=== PATIENT | female | born 1955 | race Caucasian/White ===

== ENCOUNTER 2017-12-27 11:56 | Inpatient (IN) | payer BC ==
[2017-12-27 12:29] LABS: Glucose,Whole Blood 356 mg/dL (75-99)
[2017-12-27] MEDS ORDERED: SODIUM CHLORIDE 0.9% 500 ML IV STA (12:31)
--- NOTE | 2017-12-27 12:34 | ED ---
General Adult HPI - General Chief complaint: Neuro Symptoms/Deficit Stated complaint: Poss Stroke Time Seen by Provider: 12/27/17 12:00 Source: patient, family, RN notes reviewed Mode of arrival: ambulatory Limitations: no limitations - History of Present Illness Initial comments: This is a 62-year-old female presents emergency Department stating that she started having slurred speech last night which her noticed. Patient states she went to work and her coworkers noticed insisted she come to the emergency department. Patient denies headache patient denies any numbness or weakness. Patient states her coworkers thought her face was drooping but she didn't notice it in her doesn't notice it. Patient denies any chest pain palpitations difficulty breathing or shortness of breath. Patient denies any fever chills or cough per patient denies abdominal pain patient denies nausea vomiting diarrhea. Patient denies any lightheadedness dizziness or near syncopal episode. Patient denies any new medications. Patient states she has posterior taking thyroid medication but she does not take it. - Related Data Home Medications Medication Instructions Recorded Confirmed Aspirin 650 mg PO DAILY PRN 12/27/17 12/27/17 Allergies Allergy/AdvReac Type Severity Reaction Status Date / Time codeine AdvReac headache Verified 12/27/17 12:35 morphine AdvReac family hx Verified 12/27/17 12:35 of severe reactions per pt Review of Systems ROS Statement: Those systems with pertinent positive or pertinent negative responses have been documented in the HPI. ROS Other: All systems not noted in ROS Statement are negative. Past Medical History Past Medical History: No Reported History History of Any Multi-Drug Resistant Organisms: None Reported Past Surgical History: No Surgical Hx Reported Past Psychological History: No Psychological Hx Reported Smoking Status: Never smoker Past Alcohol Use History: None Reported Past Drug Use History: None Reported General Exam - General Exam Comments Initial Comments: GENERAL: Patient is well-developed and well-nourished. Patient is nontoxic and well- hydrated and is in no acute distress. ENT: Neck is soft and supple. No significant lymphadenopathy is noted. Oropharynx is clear. Moist mucous membranes. Neck has full range of motion without eliciting any pain EYES: The sclera were anicteric and conjunctiva were pink and moist. Extraocular movements were intact and pupils were equal round and reactive to light. Eyelids were unremarkable. PULMONARY: Unlabored respirations. Good breath sounds bilaterally. No audible rales rhonchi or wheezing was noted. CARDIOVASCULAR: There is a regular rate and rhythm without any murmurs gallops or rubs. ABDOMEN: Soft and nontender with normal bowel sounds. No palpable organomegaly was noted. There is no palpable pulsatile mass. SKIN: Skin is clear with no lesions or rashes and otherwise unremarkable. NEUROLOGIC: Patient is alert and oriented x3. Cranial nerves II through XII are grossly intact. Motor and sensory are also intact. Patient's speech is slightly slurred. Symmetrical smile. MUSCULOSKELETAL: Normal extremities with adequate strength and full range of motion. No lower extremity swelling or edema. No calf tenderness. LYMPHATICS: No significant lymphadenopathy is noted PSYCHIATRIC: Normal psychiatric evaluation. Normal interpersonal interactions appears functionally intact in deals appropriately with others. No signs of depression. No signs of anxiety. Limitations: no limitations Course Vital Signs 12/27/17 12/27/17 12/27/17 12:00 14:21 16:00 Temperature 98.3 F Pulse Rate 74 80 Respiratory 20 16 18 Rate Blood Pressure 190/89 166/51 O2 Sat by Pulse 97 95 Oximetry 12/27/17 16:37 Temperature Pulse Rate 80 Respiratory 18 Rate Blood Pressure O2 Sat by Pulse 98 Oximetry Medical Decision Making - Medical Decision Making EKG shows normal sinus rhythm at 69 bpm CO interval is 140 QRS is 80 QT interval 410 QTC is 439. Patient's EKG shows no ST segment elevation or depression or T wave abnormalities are noted. Computed tomography scan shows no acute abnormalities on the brain. Chest x-ray shows no acute abnormality. Patient's sugar is elevated she is no history of diabetes. Patient's thyroid is low but she is aware of this but she's not taken any of her normal medications. I spoke with Dr. Allen I admitted the patient I consult the neurology I put the patient on a insulin sliding scale. - Lab Data Result diagrams: 12/27/17 12:20 12/27/17 12:20 Lab Results 12/27/17 12/27/17 12/27/17 Range/Units 12:20 12:20 12:20 WBC 6.4 (3.8-10.6) k/uL RBC 5.15 (3.80-5.40) m/uL Hgb 14.1 (11.4-16.0) gm/dL Hct 43.7 (34.0-46.0) % MCV 84.9 (80.0-100.0) fL MCH 27.3 (25.0-35.0) pg MCHC 32.2 (31.0-37.0) g/dL RDW 13.2 (11.5-15.5) % Plt Count 280 (150-450) k/uL Neutrophils % 52 % Lymphocytes % 35 % Monocytes % 8 % Eosinophils % 3 % Basophils % 1 % Neutrophils # 3.3 (1.3-7.7) k/uL Lymphocytes # 2.3 (1.0-4.8) k/uL Monocytes # 0.5 (0-1.0) k/uL Eosinophils # 0.2 (0-0.7) k/uL Basophils # 0.1 (0-0.2) k/uL PT (9.0-12.0) sec INR (<1.2) APTT (22.0-30.0) sec Sodium 138 (137-145) mmol/L Potassium 4.5 (3.5-5.1) mmol/L Chloride 98 (98-107) mmol/L Carbon Dioxide 25 (22-30) mmol/L Anion Gap 15 mmol/L BUN 18 H (7-17) mg/dL Creatinine 0.70 (0.52-1.04) mg/dL Est GFR (CKD-EPI)AfAm >90 (>60 ml/min/1.73 sqM) Est GFR (CKD-EPI)NonAf >90 (>60 ml/min/1.73 sqM) Glucose 349 H (74-99) mg/dL POC Glucose (mg/dL) (75-99) mg/dL POC Glu Photo Lab Manager ID Calcium 9.6 (8.4-10.2) mg/dL Total Bilirubin 0.6 (0.2-1.3) mg/dL AST 33 (14-36) U/L ALT 35 (9-52) U/L Alkaline Phosphatase 73 (38-126) U/L Total Creatine Kinase 289 H (30-135) U/L CK-MB (CK-2) 3.1 H* (0.0-2.4) ng/mL CK-MB (CK-2) Rel Index 1.1 Troponin I <0.012 (0.000-0.034) ng/mL Total Protein 7.5 (6.3-8.2) g/dL Albumin 4.6 (3.5-5.0) g/dL TSH 69.400 H (0.465-4.680) mIU/L Free T4 0.19 L (0.78-2.19) ng/dL 12/27/17 12/27/17 Range/Units 12:20 12:27 WBC (3.8-10.6) k/uL RBC (3.80-5.40) m/uL Hgb (11.4-16.0) gm/dL Hct (34.0-46.0) % MCV (80.0-100.0) fL MCH (25.0-35.0) pg MCHC (31.0-37.0) g/dL RDW (11.5-15.5) % Plt Count (150-450) k/uL Neutrophils % % Lymphocytes % % Monocytes % % Eosinophils % % Basophils % % Neutrophils # (1.3-7.7) k/uL Lymphocytes # (1.0-4.8) k/uL Monocytes # (0-1.0) k/uL Eosinophils # (0-0.7) k/uL Basophils # (0-0.2) k/uL PT 10.0 (9.0-12.0) sec INR 1.0 (<1.2) APTT 24.7 (22.0-30.0) sec Sodium (137-145) mmol/L Potassium (3.5-5.1) mmol/L Chloride (98-107) mmol/L Carbon Dioxide (22-30) mmol/L Anion Gap mmol/L BUN (7-17) mg/dL Creatinine (0.52-1.04) mg/dL Est GFR (CKD-EPI)AfAm (>60 ml/min/1.73 sqM) Est GFR (CKD-EPI)NonAf (>60 ml/min/1.73 sqM) Glucose (74-99) mg/dL POC Glucose (mg/dL) 356 H (75-99) mg/dL POC Glu Photo Lab Manager KENDALL Eric Campo Calcium (8.4-10.2) mg/dL Total Bilirubin (0.2-1.3) mg/dL AST (14-36) U/L ALT (9-52) U/L Alkaline Phosphatase (38-126) U/L Total Creatine Kinase (30-135) U/L CK-MB (CK-2) (0.0-2.4) ng/mL CK-MB (CK-2) Rel Index Troponin I (0.000-0.034) ng/mL Total Protein (6.3-8.2) g/dL Albumin (3.5-5.0) g/dL TSH (0.465-4.680) mIU/L Free T4 (0.78-2.19) ng/dL Disposition Clinical Impression: New onset type 2 diabetes mellitus, Hypothyroid, TIA (transient ischemic attack ) Disposition: ADMITTED IP TO THIS [facility] Time of Disposition: 16:25
--- NOTE | 2017-12-27 13:44 | CT ---
EXAMINATION TYPE: CT brain wo con DATE OF EXAM: 12/27/2017 COMPARISON: NONE HISTORY: Slurred speech CT DLP: 1017.[address] of the brain was performed. The ventricles, basal cisterns and sulci overlying the cerebral convexities demonstrate mild enlargem ent. There is no evidence for intracranial hemorrhage or sulcal effacement. Smaller remote insult right centrum semiovale bilaterally. There is decreased attenuation about the p eriventricular white matter and deep white matter of both cerebral hemispheres, compatible with chron ic small vessel ischemia. Differential diagnosis does include demyelination. No mass effects are seen.No midline shift. Osseous calvarium is intact. If symptoms persist consider MRI. IMPRESSION: 1. Age related atrophic and chronic small vessel ischemic change without acute intracranial process s een at this time.
--- NOTE | 2017-12-27 13:45 | XR ---
EXAMINATION TYPE: XR chest 2V DATE OF EXAM: 12/27/2017 COMPARISON: NONE HISTORY: Shortness of breath TECHNIQUE: Frontal and lateral views of the chest are obtained. FINDINGS: Scattered senescent parenchymal changes noted. No evidence for infiltrate. No evidence for atelectasis. Heart size is stable. Mediastinal structures are stable and grossly unremarkable. No evidence for hilar prominence. Degenerative changes dorsal spine. IMPRESSION: 1. No evidence for acute pulmonary disease.
[2017-12-27 15:43] LABS: ALT 35 U/L (9-52); AST 33 U/L (14-36); Albumin 4.6 g/dL (3.5-5.0); Alkaline Phosphatase 73 U/L (38-126); Anion Gap 15 mmol/L; Blood Urea Nitrogen 18 mg/dL (7-17); Calcium 9.6 mg/dL (8.4-10.2); Carbon Dioxide 25 mmol/L (22-30); Chloride 98 mmol/L (98-107); Glucose 349 mg/dL (74-99); Potassium 4.5 mmol/L (3.5-5.1); Sodium 138 mmol/L (137-145); Total Bilirubin 0.6 mg/dL (0.2-1.3); Total Protein 7.5 g/dL (6.3-8.2)
[2017-12-27 15:48] LABS: Basophils # (A) 0.1 k/uL (0-0.2); Basophils % (A) 1 %; Eosinophils # (A) 0.2 k/uL (0-0.7); Eosinophils % (A) 3 %; HCT 43.7 % (34.0-46.0); HGB 14.1 gm/dL (11.4-16.0); Lymphocytes # (A) 2.3 k/uL (1.0-4.8); Lymphocytes % (A) 35 %; MCH 27.3 pg (25.0-35.0); MCHC 32.2 g/dL (31.0-37.0); MCV 84.9 fL (80.0-100.0); Monocytes # (A) 0.5 k/uL (0-1.0); Monocytes % (A) 8 %; Neutrophils # (A) 3.3 k/uL (1.3-7.7); Neutrophils % (A) 52 %; Platelet Count 280 k/uL (150-450); RBC 5.15 m/uL (3.80-5.40); RDW 13.2 % (11.5-15.5); WBC 6.4 k/uL (3.8-10.6)
[2017-12-27 15:52] LABS: Partial Thromboplastin Time 24.7 sec (22.0-30.0)
[2017-12-27 15:57] LABS: Creatine Kinase 289 U/L (30-135)
[2017-12-27 16:00] LABS: T4, Free (Free Thyroxine) 0.19 ng/dL (0.78-2.19)
[2017-12-27 16:10] LABS: Troponin I <0.012 ng/mL (0.000-0.034)
[2017-12-27 16:15] VITALS: RESP 18
[2017-12-27 16:28] LABS: Creatine Kinase MB 3.1 ng/mL (0.0-2.4)
[2017-12-27] MEDS: INSULIN ASPART 100 UNIT/ML 1 ML 10 ML VIAL SQ SCH ×2 (17:34→21:27)
[2017-12-27] MEDS ORDERED: hydrALAZINE HCL 20 MG/ML 1 ML VIAL IVP PRN (18:54)
--- NOTE | 2017-12-27 20:04 | P.CONS ---
History of Present Illness - Reason for Consult Consult date: 12/27/17 Slurred speech - Chief Complaint Slurred speech - History of Present Illness This 62-year-old pleasant female being evaluated by the neurology service for slurred speech. Last night her noticed that her speech was a little slurred. She went to work and coworkers also noticed this. She has no previous history of TIA or stroke. He denies headaches or lateralizing numbness or weakness. He denied any chest pains. He denied any dizziness. He does have a significant history of hypothyroidism but she does not take her medication. Her blood pressure was quite elevated in the emergency room. CT of the brain showed no acute intracranial abnormalities. It did show age- related atrophic and chronic small vessel ischemic changes. Her glucose was found to be quite elevated. She has been started on insulin. No known history of diabetes. At the time of eye exam she is resting comfortably in bed in no acute distress. Review of Systems All systems: negative Constitutional: Reports as per HPI Past Medical History Past Medical History: Memory Impairment, Thyroid Disorder Additional Past Medical History / Comment(s): at age 55 fell slpit back of head open-sutures. hx of thyroid but weaned herself off her meds a month ago d/t cost of them. stated she has short term memory problems. History of Any Multi-Drug Resistant Organisms: None Reported Past Surgical History: Tubal Ligation Additional Past Surgical History / Comment(s): colonoscopy Past Anesthesia/Blood Transfusion Reactions: No Reported Reaction Smoking Status: Former smoker - Past Family History Mother Family Medical History: Diabetes Mellitus Sister(s) Family Medical History: Diabetes Mellitus Additional Family Medical History / Comment(s): neuropathy Father Family Medical History: Cancer, Seizure Disorder Medications and Allergies Home Medications Medication Instructions Recorded Confirmed Type Aspirin 650 mg PO DAILY PRN 12/27/17 12/27/17 History Allergies Allergy/AdvReac Type Severity Reaction Status Date / Time codeine AdvReac headache Verified 12/27/17 12:35 morphine AdvReac family hx Verified 12/27/17 12:35 of severe reactions per pt Physical Exam Vitals: Vital Signs Temp Pulse Pulse Resp BP BP Pulse Ox 12/27/17 18:19 96.4 F L 68 18 183/93 99 12/27/17 17:40 98.7 F 78 18 156/70 98 03/23/18 16:37 80 18 98 12/27/17 16:00 18 12/27/17 14:21 80 16 166/51 95 12/27/17 12:00 98.3 F 74 20 190/89 97 Intake and Output 12/27/17 12/27/17 12/27/17 06:59 14:59 22:59 Other: Weight 68.039 kg - Constitutional General appearance: average body habitus, cooperative, no acute distress - EENT Eyes: no abnormal pupil, EOMI, PERRLA, no ptosis ENT: hearing grossly normal - Neck Neck: normal ROM, no rigidity - Respiratory Respiratory: negative: prolonged expiration, prolonged inspiration - Cardiovascular Rhythm: regular - Gastrointestinal General gastrointestinal: no distended, no tenderness - Neurologic The patient is alert awake and oriented 3. Speech is slightly slurred and language are normal. Note that she does have 2 missing bottom teeth. She said this is not new. And she does think she is slurring her words a little. There is no facial asymmetry. Strength is 5 out of 5 in bilateral upper and lower extremities. There is no sensory deficit. No tremors or seizures are seen. Cranial nerves II through XII are intact globally. Results CBC & Chem 7: 12/27/17 12:20 12/27/17 12:20 Labs: Abnormal Lab Results - Last 24 Hours (Table) 12/27/17 12/27/17 12/27/17 Range/Units 12:20 12:20 12:27 BUN 18 H (7-17) mg/dL Glucose 349 H (74-99) mg/dL POC Glucose (mg/dL) 356 H (75-99) mg/dL Total Creatine Kinase 289 H (30-135) U/L CK-MB (CK-2) 3.1 H* (0.0-2.4) ng/mL TSH 69.400 H (0.465-4.680) mIU/L Free T4 0.19 L (0.78-2.19) ng/dL Assessment and Plan (1) Accelerated hypertension Current Visit: Yes Status: Suspected Code(s): I10 - ESSENTIAL (PRIMARY) HYPERTENSION SNOMED Code(s): 56399003 (2) Hypothyroid Current Visit: Yes Status: Chronic Code(s): E03.9 - HYPOTHYROIDISM, UNSPECIFIED SNOMED Code(s): 93938253 (3) New onset type 2 diabetes mellitus Current Visit: Yes Status: Suspected Code(s): E11.9 - TYPE 2 DIABETES MELLITUS WITHOUT COMPLICATIONS SNOMED Code(s): 25240522 (4) Dysarthria Current Visit: Yes Status: Acute Code(s): R47.1 - DYSARTHRIA AND ANARTHRIA SNOMED Code(s): 9205775 Plan: This patient does have a persistent symptom of slurred speech. I will order an MRI of the brain to rule out an acute ischemic event. Carotid Doppler has been ordered as well as an EEG. Lipid panel has been ordered. I will start her on 325 mg of aspirin and Lipitor 20 mg. She has a new diagnosis of diabetes. Initiation of treatment has begun on that. Recommend monitoring her blood pressure and putting on appropriate medication. Consult has been placed for speech therapy. We will continue to follow and make recommendations based on the above studies. I have performed a history and physical on the above patient. I have reviewed the above note, and agree.
[2017-12-27] MEDS ORDERED: ATORVASTATIN 20 MG TAB PO SCH (21:00)
[2017-12-27 21:26] LABS: Glucose,Whole Blood 146 mg/dL (75-99)
--- NOTE | 2017-12-27 22:32 | US ---
EXAMINATION TYPE: US carotid duplex BILAT DATE OF EXAM: 12/27/2017 COMPARISON: NONE CLINICAL HISTORY: dysarthria. Slurred speech EXAM MEASUREMENTS: RIGHT: Peak Systolic Velocity (PSV) cm/sec ----- Right CCA: 57.2 ----- Right ICA: 73.4 ----- Right ECA: 77.5 ICA/CCA ratio: 1.3 RIGHT: End Diastole cm/sec ----- Right CCA: 15.4 ----- Right ICA: 22.6 ----- Right ECA: 6.5 LEFT: Peak Systolic Velocity (PSV) cm/sec ----- Left CCA: 61.5 ----- Left ICA: 71.4 ----- Left ECA: 47.8 ICA/CCA ratio: 1.2 LEFT: End Diastole cm/sec ----- Left CCA: 14.3 ----- Left ICA: 24.2 ----- Left ECA: 7.5 VERTEBRALS (direction of flow): Right Vertebral: Antegrade Left Vertebral: Antegrade Rhythm: Normal No elevated velocities, no significant stenosis. IMPRESSION: There is antegrade flow in the vertebral arteries. The images and measurements suggest l ess than 20% stenosis in both internal carotid arteries. Criteria for Assigning % of Stenosis / Diameter reduction (Estimation based on the indirect measurements of the internal carotid artery velocities (ICA PSV). 1. Normal (no stenosis)=ICA PSV < 125 cm/s: ratio < 2.0: ICA EDV<40 cm/s. 2. Less than 50% stenosis=ICA PSV < 125 cm/s: ratio < 2.0: ICA EDV<40 cm/s. 3. 50 to 69% stenosis=ICA PSV of 125 to 230 cm/s: ration 2.0 ? 4.0: ICA EDV 40-100 cm/s. 4. Greater than 70% stenosis to near occlusion= ICA PSV > 230 cm/s: ratio > 4.0: ICA EDV > 100 cm/s. 5. Near occlusion= ICA PSV velocities may be low or undetectable: variable ratio and ICA EDV. 6. Total occlusion=unable to detect flow.
[2017-12-28 04:41] LABS: Hemoglobin A1C 12.7 % (4.0-6.0)
[2017-12-28 07:04] LABS: Glucose,Whole Blood 225 mg/dL (75-99)
[2017-12-28 07:19] LABS: Cholesterol 225 mg/dL (<200); HDL Cholesterol 71 mg/dL (40-60); LDL Cholesterol,Calculated 124 mg/dL (0-99); Triglycerides 150 mg/dL (<150)
[2017-12-28] MEDS: INSULIN ASPART 100 UNIT/ML 1 ML 10 ML VIAL SQ SCH ×2 (08:08→13:23)
[2017-12-28] MEDS ORDERED: ASPIRIN 325 MG TAB PO SCH (09:00)
[2017-12-28 11:15] VITALS: BMI 30.8
[2017-12-28] MEDS ORDERED: amLODIPine 10 MG TAB PO SCH (11:30)
[2017-12-28 11:52] LABS: Glucose,Whole Blood 256 mg/dL (75-99)
--- NOTE | 2017-12-28 11:53 | MR ---
MR brain without contrast HISTORY: Dysarthria Multiplanar multisequence imaging through the brain Correlation to head CT 12/27/2017 There is restricted diffusion at the level of the periventricular white matter in the right parietal region. Additional scattered hyperintensities are present on inversion recovery and T2-weighted seque nces within the periventricular, subcortical white matter bilaterally, approximately 40-50 lesions on inversion recovery and T2-weighted sequences. There is no mass effect, no hemorrhage or hydrocephalu s is evident. There are normal vascular flow voids. Orbits show symmetric appearance. Corpus callosum , pituitary, cervical medullary junction, cerebellopontine angles are within normal limits. Mild muco leandra disease present within the ethmoid air cells. Cortical atrophy is likely age-related. IMPRESSION: Subacute infarct. Evidence of chronic small vessel ischemia, age related atrophy.
--- NOTE | 2017-12-28 12:18 | CONS ---
CONSULTATION CHIEF COMPLAINT: CVA. HISTORY OF PRESENT ILLNESS: This is 62-year-old lady who was admitted to hospital with slurred speech. She denies chest pain, difficulty in breathing, palpitations, dizziness or syncope. The slurred speech has since resolved from admission and at the time of my evaluation this morning, she is comfortable at rest and is free of symptoms. PAST MEDICAL HISTORY: Significant for hypertension, hypothyroidism, and new onset diabetes. The patient has a history of hypertension but has not been taking medications. I have been consulted because of hypertension. The patient has severe and profound hypothyroidism with a TSH of 60. Blood pressure is a poorly controlled at 168/74. PAST MEDICAL HISTORY: Significant for hypertension. CURRENT MEDICATIONS: Include aspirin, Lipitor, insulin. ALLERGIES: ALLERGIC TO CODEINE AND MORPHINE. FAMILY HISTORY: Negative for premature coronary artery disease. Parents had coronary artery disease. SOCIAL HISTORY: Social history is negative for smoking, EtOH abuse, or drug abuse. REVIEW OF SYSTEMS: HEENT significant for slurred speech. CARDIAC: Negative. RESPIRATORY: Negative. GI: Negative. negative. MUSCULOSKELETAL: Negative. Endocrine: Negative. DERM: Negative. CONSTITUTIONAL: Negative. Oncological: Negative. BIOMEDICAL EQUIPMENT TECH: Significant for slurred speech. The rest of the system review is not relevant. PHYSICAL EXAM: Patient heart rate is 82 with a blood pressure of 160/74, respiratory rate is 18, O2 sat is 95% on room air. There is no jugular venous distention. Carotid upstroke is normal. There is no bruit. Chest exam reveals good air entry bilaterally. Heart exam reveals first and second heart sounds. No gallop. Abdomen is soft, nontender. Exam extremities did not reveal any edema. Peripheral pulses are felt. LABS: Showed a hemoglobin of 14.1, platelet count is 280. Creatinine is 0.7, potassium is 4.5. LDL cholesterol is 124. Troponin is negative. TSH is 69. Carotid duplex is negative. EKG shows sinus rhythm with poor R-wave progression. ASSESSMENT: 1. Slurred speech. Workup is in progress. 2. Uncontrolled hypertension. 3. Abnormal EKG. PLAN: I am going to start the patient on amlodipine 10 mg daily for optimal blood pressure control. Obtain a 2D echo to rule out cardiac source of thromboembolic phenomenon. If she truly had a CVA, and if the neurologist has asked, we can do a CARLOS on her to rule out cardiac source of embolic phenomenon. She has abnormal EKG and will need a stress test down the road to rule out ischemic heart disease. MMODL / IJN: [id number] /
--- NOTE | 2017-12-28 14:34 | P.PN ---
Subjective Progress Note Date: 12/28/17 Principal diagnosis: CVA This pleasant 62-year-old female continuing to be evaluated by the neurology service for dysarthria. This was noticed by both her and a coworker lasting more than a day. She had no lateralizing numbness or weakness. She has a significant history of hypothyroidism but does not take her medication. Recall that her blood pressure was quite high in the emergency room and she is being treated with amlodipine for this. Her CT of the brain showed no acute intracranial abnormalities. However, an MRI of the brain did show subacute parietal infarct. It also showed chronic small vessel ischemic changes. She also has a new diagnosis of diabetes since admission. At the time my exam she is resting comfortably in bed in no acute distress. She denies any new neurological symptoms. Objective - Vital Signs Vital signs: Vital Signs Temp 99.0 F 12/28/17 08:00 Pulse 82 12/28/17 08:00 Resp 18 12/28/17 08:00 BP 168/74 12/28/17 08:00 Pulse Ox 95 12/28/17 08:00 Intake & Output 12/27/17 12/28/17 12/28/17 18:59 06:59 18:59 Intake Total 120 Output Total 350 Balance -350 120 Weight 68.039 kg 69.3 kg 69.3 kg Intake: Oral 120 Output: Urine 350 Other: # Voids 1 1 - Constitutional General appearance: Present: average body habitus, cooperative, no acute distress - EENT Eyes: Present: EOMI, PERRLA. Absent: abnormal pupil, ptosis ENT: Present: hearing grossly normal - Neck Neck: Present: normal ROM. Absent: rigidity - Respiratory Respiratory: negative: prolonged expiration, prolonged inspiration - Cardiovascular Rhythm: regular - Gastrointestinal General gastrointestinal: Absent: distended, tenderness - Neurologic Neurologic Comment(s): The patient is alert awake and oriented 3. Speech very mildly dysarthric but much better than yesterday and language is normal. There is no facial asymmetry. Strength is 5 out of 5 in bilateral upper and lower extremities. There is no sensory deficit. No tremors or seizures are seen. Cranial nerves II through XII are intact globally. - Labs CBC & Chem 7: 12/27/17 12:20 12/27/17 12:20 Labs: Abnormal Lab Results - Last 24 Hours (Table) 12/27/17 12/27/17 12/27/17 Range/Units 12:20 12:20 12:20 BUN 18 H (7-17) mg/dL Glucose 349 H (74-99) mg/dL POC Glucose (mg/dL) (75-99) mg/dL Hemoglobin A1c 12.7 H (4.0-6.0) % Total Creatine Kinase 289 H (30-135) U/L CK-MB (CK-2) 3.1 H* (0.0-2.4) ng/mL Triglycerides (<150) mg/dL Cholesterol (<200) mg/dL LDL Cholesterol, Calc (0-99) mg/dL HDL Cholesterol (40-60) mg/dL TSH 69.400 H (0.465-4.680) mIU/L Free T4 0.19 L (0.78-2.19) ng/dL 12/27/17 12/28/17 12/28/17 Range/Units 21:22 05:18 07:03 BUN (7-17) mg/dL Glucose (74-99) mg/dL POC Glucose (mg/dL) 146 H 225 H (75-99) mg/dL Hemoglobin A1c (4.0-6.0) % Total Creatine Kinase (30-135) U/L CK-MB (CK-2) (0.0-2.4) ng/mL Triglycerides 150 H (<150) mg/dL Cholesterol 225 H (<200) mg/dL LDL Cholesterol, Calc 124 H (0-99) mg/dL HDL Cholesterol 71 H (40-60) mg/dL TSH (0.465-4.680) mIU/L Free T4 (0.78-2.19) ng/dL 12/28/17 Range/Units 11:49 BUN (7-17) mg/dL Glucose (74-99) mg/dL POC Glucose (mg/dL) 256 H (75-99) mg/dL Hemoglobin A1c (4.0-6.0) % Total Creatine Kinase (30-135) U/L CK-MB (CK-2) (0.0-2.4) ng/mL Triglycerides (<150) mg/dL Cholesterol (<200) mg/dL LDL Cholesterol, Calc (0-99) mg/dL HDL Cholesterol (40-60) mg/dL TSH (0.465-4.680) mIU/L Free T4 (0.78-2.19) ng/dL Assessment and Plan (1) Accelerated hypertension Current Visit: Yes Status: Suspected Code(s): I10 - ESSENTIAL (PRIMARY) HYPERTENSION SNOMED Code(s): 59328981 (2) Hypothyroid Current Visit: Yes Status: Chronic Code(s): E03.9 - HYPOTHYROIDISM, UNSPECIFIED SNOMED Code(s): 33222956 (3) New onset type 2 diabetes mellitus Current Visit: Yes Status: Suspected Code(s): E11.9 - TYPE 2 DIABETES MELLITUS WITHOUT COMPLICATIONS SNOMED Code(s): 20701474 (4) Dysarthria Current Visit: Yes Status: Acute Code(s): R47.1 - DYSARTHRIA AND ANARTHRIA SNOMED Code(s): 5681295 (5) CVA (cerebral vascular accident) Current Visit: Yes Status: Acute Code(s): I63.9 - CEREBRAL INFARCTION, UNSPECIFIED SNOMED Code(s): 310211572 Plan: This patient does have a persistent symptom of slurred speech. Her MRI of the brain did show a subacute right parietal stroke. Carotid Doppler showed no hemodynamically significant stenosis. Her triglycerides were 158 total cholesterol is 225 HDL was 124 and LDL was 71. She will continue 325 mg of aspirin and Lipitor 20 mg. She has a new diagnosis of diabetes. Initiation of treatment has begun on that. Cardiology will continue to evaluate for looks like an abnormal heart rhythm. She has been started on amlodipine, and scheduled for an echocardiogram. Consult has been placed for speech therapy. No further neurological workup is needed. We can be consulted on as-needed basis for any changes in her neurological status. I have performed a history and physical on the above patient. I have reviewed the above note, and agree.
[2017-12-28 16:27] VITALS: BP 172/93; PULSE 68; TEMP 98.6
--- NOTE | 2017-12-28 17:01 | P.HPIM ---
History of Present Illness 62-year-old pleasant female with complaints of slurred speech slurred speech. Which completely resolved now. Last night her noticed that her speech was a little slurred. She went to work and coworkers also noticed this. She has no previous history of TIA or stroke. He denies headaches or lateralizing numbness or weakness. He denied any chest pains. He denied any dizziness. He does have a significant history of hypothyroidism but she does not take her medication. Her blood pressure was quite elevated in the emergency room. CT of the brain showed no acute intracranial abnormalities. It did show age- related atrophic and chronic small vessel ischemic changes. Her glucose was found to be quite elevated. She has been started on insulin. No known history of diabetes. At the time of eye exam she is resting comfortably in bed in no acute distress. Patient underwent workup for stroke patient is found to have some subacute stroke changes on the right cerebral hemisphere in the parietal lobe. Patient is also found to be diabetic with the hemoglobin A1c of 12 hypothyroid with highly elevated TSH hypertensive. Patient is cleared for discharge Speech abnormality is completely resolved extensive counseling regarding diet was provided and the patient need to check the blood sugars twice a day glucometer insulin prescription lancets prescription will be provided along with the prescription for metformin and sitagliptin. Metformin dose can be increased as an outpatient from find it twice a day 2000 twice a day patient will be started on losartan for blood pressure and she is diabetic and patient will be started on levothyroxine 100 g daily before breakfast Review of Systems REVIEW OF SYSTEMS: CONSTITUTIONAL: No fever, no malaise, no fatigue. HEENT: No recent visual problems or hearing problems. Denied any sore throat. CARDIOVASCULAR: No chest pain, orthopnea, PND, no palpitations, no syncope. PULMONARY: No shortness of breath, no cough, no hemoptysis. GASTROINTESTINAL: No diarrhea, no nausea, no vomiting, no abdominal pain. Normoactive bowel sounds. NEUROLOGICAL: No headaches, no weakness, no numbness. HEMATOLOGICAL: Denies any bleeding or petechiae. GENITOURINARY: Denies any burning micturition, frequency, or urgency. MUSCULOSKELETAL/RHEUMATOLOGICAL: Denies any joint pain, swelling, or any muscle pain. ENDOCRINE: Denies any polyuria or polydipsia. The rest of the 14-point review of systems is negative. Past Medical History Past Medical History: Memory Impairment, Thyroid Disorder Additional Past Medical History / Comment(s): at age 55 fell slpit back of head open-sutures. hx of thyroid but weaned herself off her meds a month ago d/t cost of them. stated she has short term memory problems. History of Any Multi-Drug Resistant Organisms: None Reported Past Surgical History: Tubal Ligation Additional Past Surgical History / Comment(s): colonoscopy Past Anesthesia/Blood Transfusion Reactions: No Reported Reaction Smoking Status: Former smoker - Past Family History Mother Family Medical History: Diabetes Mellitus Sister(s) Family Medical History: Diabetes Mellitus Additional Family Medical History / Comment(s): neuropathy Father Family Medical History: Cancer, Seizure Disorder Medications and Allergies Home Medications Medication Instructions Recorded Confirmed Type Aspirin 81 mg PO DAILY #30 chewable 12/28/17 Rx Atorvastatin [Lipitor] 40 mg PO HS #30 tablet 12/28/17 Rx Levothyroxine Sodium [Synthroid] 100 mcg PO DAILY #30 tab 12/28/17 Rx Losartan [Cozaar] 50 mg PO DAILY #30 tab 12/28/17 Rx metFORMIN HCL [Glucophage] 500 mg PO BID #60 tab 12/28/17 Rx sitaGLIPtin [Januvia] 100 mg PO DAILY #30 tab 12/28/17 Rx Allergies Allergy/AdvReac Type Severity Reaction Status Date / Time codeine AdvReac headache Verified 12/27/17 12:35 morphine AdvReac family hx Verified 12/27/17 12:35 of severe reactions per pt Physical Exam Vitals: Vital Signs Temp Pulse Pulse Resp BP BP Pulse Ox 12/28/17 12:00 98.6 F 68 18 172/93 96 12/28/17 08:00 99.0 F 82 18 168/74 95 12/28/17 04:00 97.8 F 71 18 150/79 97 12/28/17 00:00 97.0 F L 70 18 143/67 98 12/27/17 20:00 97.7 F 68 18 156/75 98 12/27/17 18:19 96.4 F L 68 18 183/93 99 12/27/17 17:40 98.7 F 78 18 156/70 98 Intake and Output 12/28/17 12/28/17 12/28/17 06:59 14:59 22:59 Intake Total 120 Output Total 350 Balance -350 120 Intake: Oral 120 Output: Urine 350 Other: # Voids 1 1 Weight 69.3 kg 69.3 kg PHYSICAL EXAMINATION: GENERAL: The patient is alert and oriented x3, not in any acute distress. Well developed, well nourished. HEENT: Pupils are round and equally reacting to light. EOMI. No scleral icterus. No conjunctival pallor. Normocephalic, atraumatic. No pharyngeal erythema. No thyromegaly. CARDIOVASCULAR: S1 and S2 present. No murmurs, rubs, or gallops. PULMONARY: Chest is clear to auscultation, no wheezing or crackles. ABDOMEN: Soft, nontender, nondistended, normoactive bowel sounds. No palpable organomegaly. MUSCULOSKELETAL: No joint swelling or deformity. EXTREMITIES: No cyanosis, clubbing, or pedal edema. NEUROLOGICAL: Gross neurological examination did not reveal any focal deficits. SKIN: No rashes. Results CBC & Chem 7: 12/27/17 12:20 12/27/17 12:20 Labs: Abnormal Lab Results - Last 24 Hours (Table) 12/27/17 12/27/17 12/28/17 Range/Units 12:20 21:22 05:18 POC Glucose (mg/dL) 146 H (75-99) mg/dL Hemoglobin A1c 12.7 H (4.0-6.0) % Triglycerides 150 H (<150) mg/dL Cholesterol 225 H (<200) mg/dL LDL Cholesterol, Calc 124 H (0-99) mg/dL HDL Cholesterol 71 H (40-60) mg/dL 12/28/17 12/28/17 Range/Units 07:03 11:49 POC Glucose (mg/dL) 225 H 256 H (75-99) mg/dL Hemoglobin A1c (4.0-6.0) % Triglycerides (<150) mg/dL Cholesterol (<200) mg/dL LDL Cholesterol, Calc (0-99) mg/dL HDL Cholesterol (40-60) mg/dL Assessment and Plan Plan: -Possible cerebrovascular accident involving the right parietal lobe with symptoms of dysarthria which completely resolved now. Patient will be discharged on aspirin 81 mg in the atorvastatin 40 mg daily her LDL is 127. -Hypothyroidism newly diagnosed -newly diagnosed type 2 diabetes mellitus -Essential hypertension newly diagnosed. Patient was evaluated by neurology cleared by neurology and patient had a carotid Doppler which did not show any significant cerebrovascular disease
--- NOTE | 2017-12-28 17:02 | P.DS ---
Providers Date of admission: 12/27/17 16:26 Attending physician: Zofia Forte MD Consults: 12/27/17 16:27 Consult Physician Routine Consulting Provider: David Kaisre Consult Reason/Comments: TIA Do you want consulting provider notified?: Yes 12/27/17 18:53 Consult Physician Routine Consulting Provider: Mitchell Vieira Consult Reason/Comments: hypertension Do you want consulting provider notified?: Yes Primary care physician: Stated None Hospital Course: Please refer to my HPI Plan - Discharge Summary Discharge Rx Participant: Yes New Discharge Prescriptions: New Aspirin 81 mg PO DAILY #30 chewable metFORMIN HCL [Glucophage] 500 mg PO BID #60 tab sitaGLIPtin [Januvia] 100 mg PO DAILY #30 tab Atorvastatin [Lipitor] 40 mg PO HS #30 tablet Losartan [Cozaar] 50 mg PO DAILY #30 tab Levothyroxine Sodium [Synthroid] 100 mcg PO DAILY #30 tab Discontinued Aspirin 650 mg PO DAILY PRN PRN Reason: Pain Discharge Medication List Aspirin 81 mg PO DAILY #30 chewable 12/28/17 [Rx] Atorvastatin [Lipitor] 40 mg PO HS #30 tablet 12/28/17 [Rx] Levothyroxine Sodium [Synthroid] 100 mcg PO DAILY #30 tab 12/28/17 [Rx] Losartan [Cozaar] 50 mg PO DAILY #30 tab 12/28/17 [Rx] metFORMIN HCL [Glucophage] 500 mg PO BID #60 tab 12/28/17 [Rx] sitaGLIPtin [Januvia] 100 mg PO DAILY #30 tab 12/28/17 [Rx] Follow up Appointment(s)/Referral(s): Gretel Larios MD [STAFF PHYSICIAN] - 1 Week (offices closed, please call to schedule a follow up appointment) None,Stated [Primary Care Provider] - 3 Days Patient Instructions/Handouts: Transient Ischemic Attack (DC), Hypothyroidism ( DC), Type 2 Diabetes in Adults (DC) Discharge Disposition: HOME SELF-CARE
[2017-12-29] MEDS ORDERED: LEVOTHYROXINE 100 MCG TAB PO SCH (06:30)
--- NOTE | 2017-12-29 08:03 | ECHOF ---
Referral Reason:TIA MEASUREMENTS -------- HEIGHT: 127.0 cm WEIGHT: 68.9 kg BP: IVSd: 1.3 cm (0.6 - 1.1) LVIDd: 3.4 cm (3.9 - 5.3) LVPWd: 1.1 cm (0.6 - 1.1) EDV(Teich): 49 ml IVSs: 1.7 cm LVIDs: 2.8 cm LVPWs: 1.3 cm %IVS Thck: 35 % ESV(Teich): 28 ml EF(Teich): 42 % %FS: 20 % SV(Teich): 21 ml LA Diam: 3.3 cm (2.7 - 3.8) LALs A4C: 5.5 cm LAAs A4C: 18.0 cm LAESV A-L A4C: 49 ml LAESV MOD A4C: 48 ml LALs A2C: 5.3 cm LAAs A2C: 16.0 cm LAESV A-L A2C: 41 ml LAESV MOD A2C: 40 ml LAESV(A-L): 46 ml LAESV Index (A-L): 31.61 ml/m Ao Diam: 2.6 cm (2.0 - 3.7) LA Diam: 3.6 cm (2.7 - 3.8) AV Cusp: 1.4 cm (1.5 - 2.6) EPSS: 0.5 cm MV E Adonis: 0.56 m/s MV DecT: 223 ms MV Dec Moca: 2.5 m/s MV A Adonis: 0.67 m/s MV E/A Ratio: 0.85 MV PHT: 65 ms AV Vmax: 1.42 m/s AV maxP.10 mmHg TR Vmax: 1.83 m/s TR maxP.45 mmHg RAP: 5.00 mmHg RVSP: 18.45 mmHg MV EF SLOPE: 64.67 mm/s (70 - 150) MV EXCURSION: 16.40 mm (> 18.000) FINDINGS -------- Sinus rhythm. This was a technically good study. The left ventricular size is normal. There is mild concentric left ventricular hypertrophy. Overa ll left ventricular systolic function is normal with, an EF between 55 - 60 %. The right ventricle is normal in size. LA is midly dilated 29-33ml/m2. The right atrial size is normal. The aortic valve is trileaflet, and appears structurally normal. No aortic stenosis or regurgitation. Mild mitral annular calcification present. Mild mitral regurgitation is present. Mild tricuspid regurgitation present. There is no evidence of pulmonary hypertension. The right v entricular systolic pressure, as measured by Doppler, is 18.45mmHg. There is no pulmonic regurgitation present. The aortic root size is normal. There is no pericardial effusion. CONCLUSIONS -------- 1. The left ventricular size is normal. 2. There is mild concentric left ventricular hypertrophy. 3. Overall left ventricular systolic function is normal with, an EF between 55 - 60 %. 4. LA is midly dilated 29-33ml/m2. 5. The aortic valve is trileaflet, and appears structurally normal. No aortic stenosis or regurgitati on. 6. Mild mitral annular calcification present. 7. Mild mitral regurgitation is present. 8. Mild tricuspid regurgitation present. 9. There is no evidence of pulmonary hypertension. 10. The right ventricular systolic pressure, as measured by Doppler, is 18.45mmHg. 11. There is no pulmonic regurgitation present. 12. The aortic root size is normal. 13. There is no pericardial effusion. ROLL MILL OPERATOR: Emily Bravo RDCS
== END 2017-12-28 18:09 | disposition home or self-care (01) | DRG 66 ==
LOC: EC 11:56 → 6SEL 16:26
PROVIDERS: ADMIT Internal Medicine; ATTEND Internal Medicine
DX: I63.9 Cerebral infarction, unspecified (principal); E03.9 Hypothyroidism, unspecified; R47.1 Dysarthria and anarthria; E11.9 Type 2 diabetes mellitus without complications; I10 Essential (primary) hypertension; Z79.82 Long term (current) use of aspirin; Z79.84 Long term (current) use of oral hypoglycemic drugs; Z79.899 Other long term (current) drug therapy; Z82.0 Family history of epilepsy and other diseases of the nervous system; Z82.49 Family history of ischemic heart disease and other diseases of the circulatory system; Z83.3 Family history of diabetes mellitus; Z87.891 Personal history of nicotine dependence; Z88.5 Allergy status to narcotic agent; Z79.890 Hormone replacement therapy
CPT/HCPCS: 36415; 70450; 70551; 71046; 80053; 80061; 82550; 82553; 83036; 84439; 84443; 84484; 85025; 85610; 85730; 93005; 93306; 93880; 99285

== ENCOUNTER 2018-03-01 20:02 | Emergency (ER) | payer BC ==
[2018-03-01 20:12] VITALS: TEMP 97.3
--- NOTE | 2018-03-01 20:50 | ED ---
Back Pain HPI - General Chief Complaint: Back Pain/Injury Stated Complaint: Back pain Time Seen by Provider: 03/01/18 20:27 Source: patient, family, RN notes reviewed Limitations: no limitations - History of Present Illness Initial Comments: This is a 62-year-old female who presents to the emergency department with chief complaint of right low back/flank pain that started yesterday. Patient states that the pain is non-positional. She states that it is constant and dull. She denies any urinary symptoms such as increased frequency, dysuria or hematuria. She denies fevers or chills, chest pain or shortness of breath, abdominal pain, nausea or vomiting, diarrhea or constipation. is at bedside and states the patient had a stroke 6 weeks ago. He states he is concerned that patient may be having a heart attack or another stroke. Patient does admit to feeling a gurgling sensation in her chest for approximately 1 minute earlier today. She states that the sensation has happened in the past and that it has subsided. She denies any injuries, trauma or recent falls. She states that she has difficulty getting out of bed in the morning because of the pain in her low back. - Related Data Previous Rx's Medication Instructions Recorded Aspirin 81 mg PO DAILY #30 chewable 12/28/17 Atorvastatin [Lipitor] 40 mg PO HS #30 tablet 12/28/17 Levothyroxine Sodium [Synthroid] 100 mcg PO DAILY #30 tab 12/28/17 Losartan [Cozaar] 50 mg PO DAILY #30 tab 12/28/17 metFORMIN HCL [Glucophage] 500 mg PO BID #60 tab 12/28/17 sitaGLIPtin [Januvia] 100 mg PO DAILY #30 tab 12/28/17 Cephalexin [Keflex] 500 mg PO Q12HR #14 cap 03/01/18 Allergies Allergy/AdvReac Type Severity Reaction Status Date / Time codeine AdvReac headache Verified 03/01/18 20:12 morphine AdvReac family hx Verified 03/01/18 20:12 of severe reactions per pt Review of Systems ROS Statement: Those systems with pertinent positive or pertinent negative responses have been documented in the HPI. ROS Other: All systems not noted in ROS Statement are negative. Past Medical History Past Medical History: CVA/TIA, Memory Impairment, Thyroid Disorder Additional Past Medical History / Comment(s): at age 55 fell slpit back of head open-sutures. hx of thyroid but weaned herself off her meds a month ago d/t cost of them. stated she has short term memory problems., History of Any Multi-Drug Resistant Organisms: None Reported Past Surgical History: Tubal Ligation Additional Past Surgical History / Comment(s): colonoscopy Past Anesthesia/Blood Transfusion Reactions: No Reported Reaction Past Psychological History: No Psychological Hx Reported Smoking Status: Former smoker Past Alcohol Use History: Occasional Past Drug Use History: None Reported - Past Family History Mother Family Medical History: Diabetes Mellitus Sister(s) Family Medical History: Diabetes Mellitus Additional Family Medical History / Comment(s): neuropathy Father Family Medical History: Cancer, Seizure Disorder General Exam - General Exam Comments Initial Comments: General: Awake and alert, well-developed; in no apparent distress. Does not appear acutely ill. HEENT: Head atraumatic, normocephalic. Pupils are equal, round and reactive to light. Extraocular movements intact. Oropharynx moist without erythema or exudate. Neck: Supple. Normal ROM. Cardiovascular: Regular rate and rhythm. No murmurs, rubs or gallops. Chest symmetrical. Respiratory: Lungs clear to auscultation bilaterally. No wheezes, rales or rhonchi. Normal respiratory effort with no use of accessory muscles. Abdomen: Soft, non-tender, non-distended. No rigidity, rebound or guarding. Normal bowel sounds in all 4 quadrants. Musculoskeletal: Normal ROM, no tenderness, strength 5/5 bilateral upper and lower extremities. Ambulating normally. Tenderness on palpation of right low back. Skin: [place], warm and dry without rashes or lesions. Neurological: Alert and oriented x3. CN II-XII grossly intact. Speech is fluent and answers are appropriate. No focal neuro deficits. Romberg negative. Psychiatric: Normal mood and affect. No overt signs of depression or anxiety noted. Limitations: no limitations Course Vital Signs 03/01/18 03/01/18 20:07 21:58 Temperature 97.3 F L Pulse Rate 84 75 Respiratory 20 18 Rate Blood Pressure 142/73 144/78 O2 Sat by Pulse 98 97 Oximetry Medical Decision Making - Medical Decision Making This is a 62-year-old female who presents to the emergency department with chief complaint of right low back/flank pain. Patient denies any fevers or chills, chest pain or shortness of breath, abdominal pain, nausea or vomiting. 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 She denies any specific injury or trauma. Her right low back is tender on palpation. Patient and are concerned because patient had a stroke 6 weeks ago. EKG was obtained and revealed normal sinus rhythm with flattening T waves noted. This was compared to previous EKG and no acute changes are noted. Chest x-ray was obtained which revealed no acute abnormalities. CBC was unremarkable. CMP was hemolyzed and did reveal slightly elevated potassium. Recommended repeating CMP in one week. UA revealed large leukocyte esterase and white blood cells. Patient will be treated for urinary tract infection. Low back pain is likely musculoskeletal in nature. Recommended rest, heating pad and ibuprofen as needed for pain. Patient is in agreement with plan and voiced understanding. All questions answered. - Lab Data Result diagrams: 03/01/18 21:05 03/01/18 21:05 Lab Results 03/01/18 03/01/18 03/01/18 Range/Units 21:05 21:05 21:05 WBC 7.2 (3.8-10.6) k/uL RBC 4.94 (3.80-5.40) m/uL Hgb 14.1 (11.4-16.0) gm/dL Hct 41.1 (34.0-46.0) % MCV 83.3 (80.0-100.0) fL MCH 28.5 (25.0-35.0) pg MCHC 34.2 (31.0-37.0) g/dL RDW 13.1 (11.5-15.5) % Plt Count 289 (150-450) k/uL Neutrophils % 46 % Lymphocytes % 38 % Monocytes % 10 % Eosinophils % 2 % Basophils % 1 % Neutrophils # 3.3 (1.3-7.7) k/uL Lymphocytes # 2.7 (1.0-4.8) k/uL Monocytes # 0.7 (0-1.0) k/uL Eosinophils # 0.2 (0-0.7) k/uL Basophils # 0.0 (0-0.2) k/uL Sodium 141 (137-145) mmol/L Potassium 6.0 H (3.5-5.1) mmol/L Chloride 100 (98-107) mmol/L Carbon Dioxide 28 (22-30) mmol/L Anion Gap 13 mmol/L BUN 22 H (7-17) mg/dL Creatinine 0.70 (0.52-1.04) mg/dL Est GFR (CKD-EPI)AfAm >90 (>60 ml/min/1.73 sqM) Est GFR (CKD-EPI)NonAf >90 (>60 ml/min/1.73 sqM) Glucose 166 H (74-99) mg/dL Calcium 9.9 (8.4-10.2) mg/dL Total Bilirubin 1.1 (0.2-1.3) mg/dL AST 39 H (14-36) U/L ALT 35 (9-52) U/L Alkaline Phosphatase 38 (38-126) U/L Troponin I <0.012 (0.000-0.034) ng/mL Total Protein 7.7 (6.3-8.2) g/dL Albumin 4.8 (3.5-5.0) g/dL Amylase 51 (30-110) U/L Lipase 62 (23-300) U/L Urine Color Urine Appearance (Clear) Urine pH (5.0-8.0) Ur Specific [place] (1.001-1.035) Urine Protein (Negative) Urine Glucose (UA) (Negative) Urine Ketones (Negative) Urine Blood (Negative) Urine Nitrite (Negative) Urine Bilirubin (Negative) Urine Urobilinogen (<2.0) mg/dL Ur Leukocyte Esterase (Negative) Urine RBC (0-5) /hpf Urine WBC (0-5) /hpf Ur Squamous Epith Cells (0-4) /hpf Hyaline Casts (0-2) /lpf Urine Mucus (None) /hpf 03/01/18 Range/Units 21:10 WBC (3.8-10.6) k/uL RBC (3.80-5.40) m/uL Hgb (11.4-16.0) gm/dL Hct (34.0-46.0) % MCV (80.0-100.0) fL MCH (25.0-35.0) pg MCHC (31.0-37.0) g/dL RDW (11.5-15.5) % Plt Count (150-450) k/uL Neutrophils % % Lymphocytes % % Monocytes % % Eosinophils % % Basophils % % Neutrophils # (1.3-7.7) k/uL Lymphocytes # (1.0-4.8) k/uL Monocytes # (0-1.0) k/uL Eosinophils # (0-0.7) k/uL Basophils # (0-0.2) k/uL Sodium (137-145) mmol/L Potassium (3.5-5.1) mmol/L Chloride (98-107) mmol/L Carbon Dioxide (22-30) mmol/L Anion Gap mmol/L BUN (7-17) mg/dL Creatinine (0.52-1.04) mg/dL Est GFR (CKD-EPI)AfAm (>60 ml/min/1.73 sqM) Est GFR (CKD-EPI)NonAf (>60 ml/min/1.73 sqM) Glucose (74-99) mg/dL Calcium (8.4-10.2) mg/dL Total Bilirubin (0.2-1.3) mg/dL AST (14-36) U/L ALT (9-52) U/L Alkaline Phosphatase (38-126) U/L Troponin I (0.000-0.034) ng/mL Total Protein (6.3-8.2) g/dL Albumin (3.5-5.0) g/dL Amylase (30-110) U/L Lipase (23-300) U/L Urine Color Yellow Urine Appearance Cloudy H (Clear) Urine pH 6.5 (5.0-8.0) Ur Specific [place] 1.020 (1.001-1.035) Urine Protein Trace H (Negative) Urine Glucose (UA) Trace H (Negative) Urine Ketones Negative (Negative) Urine Blood Negative (Negative) Urine Nitrite Negative (Negative) Urine Bilirubin Negative (Negative) Urine Urobilinogen <2.0 (<2.0) mg/dL Ur Leukocyte Esterase Large H (Negative) Urine RBC 2 (0-5) /hpf Urine WBC 14 H (0-5) /hpf Ur Squamous Epith Cells 1 (0-4) /hpf Hyaline Casts 4 H (0-2) /lpf Urine Mucus Rare H (None) /hpf - EKG Data EKG Comments: 20:51:07. Normal sinus rhythm. Minimal voltage criteria for LVH, maybe normal variant. Septal infarct, age undetermined. Ventricular rate 77 bpm, IN interval 128, QRS duration 82, QT/QTC 396/448. No evidence of ST segment elevation or depression. There does appear to be diffuse T wave flattening. When compared to previous EKG on 12/27/2017, flattening of T wave was also present. - Radiology Data Radiology results: report reviewed, image reviewed Chest x-ray impression: No acute cardiopulmonary process. Disposition Clinical Impression: Urinary tract infection, Mechanical back pain Disposition: HOME SELF-CARE Condition: Good Instructions: Acute Low Back Pain (ED), Urinary Tract Infection in Women (ED) Additional Instructions: Please take medications as prescribed. Please follow up with primary care provider within 1-2 days. Return to emergency department if symptoms should worsen or any concerns arise. Prescriptions: Cephalexin [Keflex] 500 mg PO Q12HR #14 cap Is patient prescribed a controlled substance at d/c from ED?: No Referrals: Gretel Larios MD [Primary Care Provider] - 1-2 days Time of Disposition: 22:46
--- NOTE | 2018-03-01 21:13 | XR ---
EXAMINATION TYPE: XR chest 2V DATE OF EXAM: 03/01/2018 COMPARISON: 12/27/2017 HISTORY: Chest pain and back pain TECHNIQUE: Frontal and lateral views of the chest are obtained. FINDINGS: There is no focal air space opacity, pleural effusion, or pneumothorax seen. The cardiac silhouette size is within normal limits. The osseous structures are intact. Mild multilevel degener ative changes of the thoracic spine are noted. No vertebral body height loss is seen on the lateral v iew of the visualized thoracic spine. IMPRESSION: No acute cardiopulmonary process.
[2018-03-01 21:28] LABS: Basophils % (A) 1 %; Eosinophils # (A) 0.2 k/uL (0-0.7); Eosinophils % (A) 2 %; HCT 41.1 % (34.0-46.0); HGB 14.1 gm/dL (11.4-16.0); Lymphocytes # (A) 2.7 k/uL (1.0-4.8); Lymphocytes % (A) 38 %; MCH 28.5 pg (25.0-35.0); MCHC 34.2 g/dL (31.0-37.0); MCV 83.3 fL (80.0-100.0); Mean Platelet Volume 7.9; Monocytes # (A) 0.7 k/uL (0-1.0); Monocytes % (A) 10 %; Neutrophils # (A) 3.3 k/uL (1.3-7.7); Neutrophils % (A) 46 %; Platelet Count 289 k/uL (150-450); RBC 4.94 m/uL (3.80-5.40); RDW 13.1 % (11.5-15.5); WBC 7.2 k/uL (3.8-10.6)
[2018-03-01 21:38] LABS: Appearance,Urine Cloudy (Clear); Bilirubin,Urine Negative (Negative); Blood,Urine Negative (Negative); Color,Urine Yellow; Glucose,Urine (UA) Trace (Negative); Hyaline Casts,Urine 4 /lpf (0-2); Ketones,Urine Negative (Negative); Leukocyte Esterase,Urine Large (Negative); Mucus,Urine Rare /hpf; Nitrite,Urine Negative (Negative); PH, Urine 6.5 (5.0-8.0); Protein,Urine Trace (Negative); RBC,Urine 2 /hpf (0-5); Squamous Epithelial Cell,Urine 1 /hpf (0-4); Urobilinogen,Urine <2.0 mg/dL (<2.0); WBC,Urine 14 /hpf (0-5)
[2018-03-01 21:38] LABS: Amylase 51 U/L (30-110); Anion Gap 13 mmol/L; Calcium 9.9 mg/dL (8.4-10.2); Carbon Dioxide 28 mmol/L (22-30); Chloride 100 mmol/L (98-107); Glucose 166 mg/dL (74-99); Lipase 62 U/L (23-300); Sodium 141 mmol/L (137-145)
[2018-03-01 21:40] LABS: ALT 35 U/L (9-52); AST 39 U/L (14-36); Albumin 4.8 g/dL (3.5-5.0); Alkaline Phosphatase 38 U/L (38-126); Blood Urea Nitrogen 22 mg/dL (7-17); Total Protein 7.7 g/dL (6.3-8.2)
[2018-03-01 21:41] LABS: Total Bilirubin 1.1 mg/dL (0.2-1.3)
[2018-03-01 21:59] VITALS: BP 144/78; PULSE 75; RESP 18
== END 2018-03-01 22:54 | disposition home or self-care (01) ==
LOC: EC 20:02
DX: N39.0 Urinary tract infection, site not specified (principal); R07.89 Other chest pain; E87.5 Hyperkalemia; E07.9 Disorder of thyroid, unspecified; Z86.73 Personal history of transient ischemic attack (TIA), and cerebral infarction without residual deficits; Z88.5 Allergy status to narcotic agent; Z79.82 Long term (current) use of aspirin; Z79.84 Long term (current) use of oral hypoglycemic drugs; Z79.899 Other long term (current) drug therapy; Z87.891 Personal history of nicotine dependence
CPT/HCPCS: 36415; 71046; 80053; 81001; 82150; 83690; 84484; 85025; 87086; 93005; 99284

== ENCOUNTER → 2018-03-04 | Outpatient (CLI) | payer BC ==
--- NOTE | 2018-03-05 09:25 | XR ---
EXAMINATION TYPE: XR scapula LT DATE OF EXAM: 03/04/2018 CLINICAL HISTORY: pain COMPARISON: NONE TECHNIQUE: 2 views of the left scapula are submitted. FINDINGS: There is no acute fracture/dislocation evident. The acromioclavicular and glenohumeral steve int spaces appear within normal limits. The visualized ribs are intact and unremarkable. IMPRESSION: 1. There is no acute fracture or dislocation. ICD 10 NO FRACTURE, INITIAL EVALUATION
== END | disposition home or self-care (01) ==
LOC: RADXRMAIN 17:02
PROVIDERS: ATTEND Family Medicine
DX: M89.8X1 Other specified disorders of bone, shoulder (principal)

== ENCOUNTER → 2018-05-28 | Outpatient (CLI) | payer BC ==
--- NOTE | 2018-05-28 15:25 | XR ---
EXAMINATION TYPE: XR Hip Complete RT DATE OF EXAM: 05/28/2018 CLINICAL HISTORY: pain TECHNIQUE: AP and frogleg views of the right hip are obtained. COMPARISON: None. FINDINGS: There is no acute fracture/dislocation evident. The joint space appears within normal li mits. The overlying soft tissue appears unremarkable. IMPRESSION: 1. There is no acute fracture or dislocation. ICD 10 NO FRACTURE, INITIAL EVALUATION
== END | disposition home or self-care (01) ==
LOC: RADXRMAIN 14:48
PROVIDERS: ATTEND Family Medicine
DX: M25.551 Pain in right hip (principal)
CPT/HCPCS: 73502

== ENCOUNTER → 2018-09-22 | Outpatient (CLI) | payer BC ==
--- NOTE | 2018-09-23 07:42 | MM ---
Reason for exam: screening (asymptomatic). Last mammogram was performed 3 years and 9 months ago. History: Patient is postmenopausal and had first child at age 33. Family history of breast cancer in cousin. Took estrogen for 1 year. Physical Findings: A clinical breast exam by your physician is recommended on an annual basis and results should be correlated with mammographic findings. MG Screening Mammo w CAD Bilateral CC and MLO view(s) were taken. Prior study comparison: December 10, 2014, bilateral MG screening mammo w CAD. July 10, 2013, bilateral screening mammogram free. There are scattered fibroglandular densities. Scattered benign oil cysts. No significant changes when compared with prior studies. ASSESSMENT: Negative, BI-RAD 1 RECOMMENDATION: Routine screening mammogram of both breasts in 1 year.
== END | disposition home or self-care (01) ==
LOC: RADMAMWWP 06:56
PROVIDERS: ATTEND Family Medicine
DX: Z12.31 Encounter for screening mammogram for malignant neoplasm of breast (principal)
CPT/HCPCS: 77067

== ENCOUNTER → 2019-05-18 | Outpatient (CLI) | payer OTHER ==
[2019-05-18 16:22] LABS: African American GFR (CKD) 69.4 (60.0-200.0); Albumin 4.6 g/dL (3.80-4.90); Albumin/Globulin Ratio 2.09 (1.60-3.17); Anion Gap 9.7 mmol/L (4.00-12.00); Calcium 9.5 mg/dL (8.7-10.3); Carbon Dioxide 27.3 mmol/L (21.6-31.8); Chol/HDL Ratio 2.59; Globulin 2.2 g/dL (1.6-3.3); LDL Cholesterol,Calculated 80.6 mg/dL (0.0-131.0); Non-African American GFR(CKD) 59.9 (60.0-200.0); Potassium 4.9 mmol/L (3.5-5.5); Total Bilirubin 0.3 mg/dL (0.2-1.2); Total Protein 6.8 g/dL (6.2-8.2); VLDL Calculation 21.4 mg/dL (5.00-40.00)
[2019-05-18 18:56] LABS: Hemoglobin A1C 7.8 % (4.0-6.0)
== END | disposition home or self-care (01) ==
LOC: LABWHC1 09:29
PROVIDERS: ATTEND Family Medicine
DX: E78.5 Hyperlipidemia, unspecified (principal); E11.9 Type 2 diabetes mellitus without complications
CPT/HCPCS: 36415; 80053; 80061; 83036

== ENCOUNTER → 2019-11-16 | Outpatient (CLI) | payer OTHER ==
--- NOTE | 2019-11-17 10:43 | MM ---
Reason for exam: screening (asymptomatic). Last mammogram was performed 1 year and 2 months ago. History: Patient is postmenopausal and had first child at age 33. Family history of breast cancer in cousin. Took estrogen for 1 year. Physical Findings: A clinical breast exam by your physician is recommended on an annual basis and results should be correlated with mammographic findings. MG Screening Mammo w CAD Bilateral CC and MLO view(s) were taken. Prior study comparison: September 22, 2018, bilateral MG screening mammo w CAD. December 10, 2014, bilateral MG screening mammo w CAD. There are scattered fibroglandular densities. Stable benign calcifications. There is no discrete abnormality. No significant changes when compared with prior studies. ASSESSMENT: Benign, BI-RAD 2 RECOMMENDATION: Routine screening mammogram of both breasts in 1 year.
== END | disposition home or self-care (01) ==
LOC: RADMAMWWP 15:10
PROVIDERS: ATTEND Family Medicine
DX: Z12.31 Encounter for screening mammogram for malignant neoplasm of breast (principal)
CPT/HCPCS: 77067

== ENCOUNTER → 2020-10-04 | Outpatient (CLI) | payer MEDICARE ==
--- NOTE | 2020-10-04 17:26 | ECHOF ---
Referral Reason:R94.31 Abnormal EKG; E11.9 Diabetes MEASUREMENTS -------- HEIGHT: 121.9 cm WEIGHT: 68.0 kg BP: IVSd: 1.3 cm (0.6 - 1.1) LVIDd: 3.7 cm (3.9 - 5.3) LVPWd: 1.3 cm (0.6 - 1.1) IVSs: 1.4 cm LVIDs: 2.7 cm LVPWs: 1.4 cm LA Diam: 4.0 cm (2.7 - 3.8) RVIDd: 2.9 cm (< 3.3) LAESV Index (A-L): 38.36 ml/m Ao Diam: 2.5 cm (2.0 - 3.7) LA Diam: 4.3 cm (2.7 - 3.8) AV Cusp: 1.7 cm (1.5 - 2.6) EPSS: 0.4 cm MV E Adonis: 0.70 m/s MV DecT: 214 ms MV A Adonis: 0.76 m/s MV E/A Ratio: 0.92 RAP: 5.00 mmHg RVSP: 14.14 mmHg MV EF SLOPE: 89.27 mm/s (70 - 150) MV EXCURSION: 14.63 mm (> 18.000) FINDINGS -------- Sinus rhythm. This was a technically good study. The left ventricular size is normal. There is mild concentric left ventricular hypertrophy. Overa ll left ventricular systolic function is normal with, an EF between 55 - 60 %. The right ventricle is normal in size. LA is moderately dilated 34-39 ml/m2 The right atrial size is normal. Can't exclude PFO vs ASD., Trace amount of aortic regurgitation. Moderate mitral regurgitation is present. Mild tricuspid regurgitation present. Right ventricular systolic pressure is normal at < 35 mmHg. Trace/mild (physiologic) pulmonic regurgitation. The aortic root size is normal. There is no pericardial effusion. CONCLUSIONS -------- 1. Sinus rhythm. 2. This was a technically good study. 3. The left ventricular size is normal. 4. There is mild concentric left ventricular hypertrophy. 5. Overall left ventricular systolic function is normal with, an EF between 55 - 60 %. 6. The right ventricle is normal in size. 7. LA is moderately dilated 34-39 ml/m2 8. The right atrial size is normal. 9. Can't exclude PFO vs ASD., 10. Trace amount of aortic regurgitation. 11. Moderate mitral regurgitation is present. 12. Mild tricuspid regurgitation present. 13. Trace/mild (physiologic) pulmonic regurgitation. 14. The aortic root size is normal. 15. There is no pericardial effusion. FOREIGN COLLECTION CLERK: Emily Bravo RDCS
== END | disposition home or self-care (01) ==
LOC: RADECHMAIN 12:09
PROVIDERS: ATTEND Family Medicine
DX: I08.1 Rheumatic disorders of both mitral and tricuspid valves (principal); I37.1 Nonrheumatic pulmonary valve insufficiency; I49.8 Other specified cardiac arrhythmias; E11.9 Type 2 diabetes mellitus without complications
CPT/HCPCS: 93306

== ENCOUNTER → 2020-10-13 | Outpatient (CLI) | payer MEDICARE ==
--- NOTE | 2020-10-13 12:17 | EST ---
EXERCISE STRESS AGE: 65 SEX: Female HT: 59" WT: 160 PROTOCOL: Michael STAGE: II DURATION OF EXERCISE: 6 minutes HEART RATE REST: 77 BLOOD PRESSURE REST: 135/78 MAXIMUM HEART RATE ACHIEVED: 145 MAXIMUM BLOOD PRESSURE: 216/84 85% MPHR: 132 100% MPHR: 155 METS: 7 INDICATIONS: Abnormal EKG. CLINICAL INFORMATION: Baseline EKG shows sinus rhythm with poor R-wave progression. Patient exercised on Michael protocol for a total of 6 minutes achieving 7 METs, 85% of predicted maximal heart rate without chest pain. At peak exercise, there was [address]-segment depression noted in the inferolateral leads. CONCLUSIONS: 1. Average exercise tolerance. 2. Abnormal stress test by EKG criteria. MMODL / IJN: [id number] /
== END | disposition home or self-care (01) ==
LOC: RADNMMAIN 10:29
PROVIDERS: ATTEND Family Medicine
DX: R94.31 Abnormal electrocardiogram [ECG] [EKG] (principal); E11.9 Type 2 diabetes mellitus without complications
CPT/HCPCS: 93017

== ENCOUNTER → 2021-09-26 | Outpatient (CLI) | payer MEDICARE ==
--- NOTE | 2021-09-27 14:03 | MM ---
Reason for exam: screening (asymptomatic). Last mammogram was performed 1 year and 10 months ago. History: Patient is postmenopausal and had first child at age 33. Family history of breast cancer in cousin. Took estrogen for 1 year. Physical Findings: A clinical breast exam by your physician is recommended on an annual basis and results should be correlated with mammographic findings. MG 3D Screening Mammo W/Cad Bilateral CC and MLO view(s) were taken. Prior study comparison: November 16, 2019, bilateral MG screening mammo w CAD. September 22, 2018, bilateral MG screening mammo w CAD. There are scattered fibroglandular densities. Benign appearing bilateral calcifications. No significant changes when compared with prior studies. ASSESSMENT: Benign, BI-RAD 2 RECOMMENDATION: Routine screening mammogram of both breasts in 1 year.
== END | disposition home or self-care (01) ==
LOC: RADMAMWWP 08:47
PROVIDERS: ATTEND Family Medicine
DX: Z12.31 Encounter for screening mammogram for malignant neoplasm of breast (principal)
CPT/HCPCS: 77063; 77067

== ENCOUNTER → 2023-09-16 | Outpatient (CLI) | payer MEDICARE ==
[2023-09-16 19:09] LABS: ALT 17 U/L (8-44); AST 18 U/L (13-35); Albumin/Globulin Ratio 1.92 Ratio (1.60-3.17); Alkaline Phosphatase 64 U/L (41-126); Blood Urea Nitrogen 24.4 mg/dL (9.0-27.0); Calcium 10.9 mg/dL (8.7-10.3); Carbon Dioxide 23.3 mmol/L (21.6-31.8); Chloride 99 mmol/L (96-109); Chol/HDL Ratio 2.68 Ratio; Globulin 2.6 g/dL (1.6-3.3); Glucose 80 mg/dL (70-110); LDL Cholesterol,Calculated 96.2 mg/dL (0.0-131.0); Potassium 4.6 mmol/L (3.5-5.5); Sodium 139 mmol/L (135-145); Total Bilirubin 0.3 mg/dL (0.3-1.2); Total Protein 7.6 g/dL (6.2-8.2)
[2023-09-16 22:31] LABS: Urine Creatinine 93.2 mg/dL (28.0-217.0)
== END | disposition home or self-care (01) ==
LOC: LABWHC1 14:17
PROVIDERS: ATTEND Internal Medicine Endocrinology, Diabetes & Metabolism
DX: E11.65 Type 2 diabetes mellitus with hyperglycemia (principal)
CPT/HCPCS: 36415; 80053; 80061; 82043; 82570; 84443

== ENCOUNTER → 2024-03-18 | Outpatient (CLI) | payer MEDICARE ==
[2024-03-18 18:41] LABS: ALT 25 U/L (8-44); AST 24 U/L (13-35); Albumin 4.7 g/dL (3.8-4.9); Albumin/Globulin Ratio 1.88 Ratio (1.60-3.17); Alkaline Phosphatase 86 U/L (41-126); BUN/Creat Ratio 17.36 Ratio (12.00-20.00); Blood Urea Nitrogen 19.1 mg/dL (9.0-27.0); Calcium 9.8 mg/dL (8.7-10.3); Carbon Dioxide 24.9 mmol/L (21.6-31.8); Chloride 98 mmol/L (96-109); Globulin 2.5 g/dL (1.6-3.3); Glucose 217 mg/dL (70-110); Potassium 3.9 mmol/L (3.5-5.5); Sodium 136 mmol/L (135-145); Total Bilirubin 0.4 mg/dL (0.3-1.2); Total Protein 7.2 g/dL (6.2-8.2)
== END | disposition home or self-care (01) ==
LOC: LABWHC1 12:12
PROVIDERS: ATTEND Internal Medicine Endocrinology, Diabetes & Metabolism
DX: E11.65 Type 2 diabetes mellitus with hyperglycemia (principal)
CPT/HCPCS: 36415; 80053; 82306; 83970; 84443

== ENCOUNTER → 2024-08-06 | Outpatient (CLI) | payer MEDICARE ==
--- NOTE | 2024-08-06 17:04 | BD ---
EXAMINATION TYPE: Axial Bone Density DATE OF EXAM: 08/06/2024 CLINICAL HISTORY: 68 years old Female. ICD-10 CODE: Z78.0 MENOPAUSAL STATE , Z78.0 Height: 59 Weight: 145.7 FRAX RISK QUESTIONS: Alcohol (3 or more units per day): no Family History (Parent hip fracture): no Glucocorticoids (More than 3mos): no (Ex: prednisone, prednisolone, methylprednisolone, dexamethasone, and hydrocortisone). History of Fracture in Adulthood: no Secondary Osteoporosis: 1. Type 1 Diabetes: no 2. Hyperthyroidism: no 3. Menopause before 45: no 4. Malnutrition: no 5. Chronic liver disease: no Rheumatoid Arthritis: no Current Tobacco Use: no RISK FACTORS HISTORY OF: Hip Fracture (Right/Left): no Spine Fracture: no History of Wrist Fracture: no Surgery to Spine/Hip(right/left)/Wrist (right/left): no MEDICATIONS: Thyroid Medications: Armor Thyroid How Long: about 20 years Osteoporosis Medications: no EXAM MEASUREMENTS: Bone mineral densitometry was performed using the [employer] System. Bone mineral density as measured about the Lumbar spine is: ----- L1-L4(G/cm2): 1.165 T Score Values are as follows: ----- L1: -1.0 ----- L2: -0.6 ----- L3: 0.2 ----- L4: 0.4 ----- L1-L4: -0.1 Z Score Values are as follows: ----- L1: 0.7 ----- L2: 1.0 ----- L3: 1.8 ----- L4: 2.0 ----- L1-L4: 1.5 Baseline Study Bone mineral density about the R hip (g/cm2): 0.861 Bone mineral density about the L hip (g/cm2): 1.046 T Score values are as follows: -----R Neck: -2.0 -----L Neck: -1.0 -----R Total: -1.2 -----L Total: 0.3 Z Score values are as follows: -----R Neck: -0.4 -----L Neck: 0.6 -----R Total: 0.2 -----L Total: 1.7 Baseline Study FRAX%s: The graph provided illustrates a 11.7% chance for a major osteoporotic fx and a 2.2% chance f or the hips probability for fx in 10 years time. IMPRESSION: Osteopenia (T Score between -2.5 and -1). There is slightly increased risk of fracture and the patient may be considered for treatment. Re-Screen 2-5 years. NOTE: T-SCORE=SD OF THE YOUNG ADULT MEAN. [facility], , 08/06/2024 5:02 PM
--- NOTE | 2024-08-10 08:27 | MM ---
Reason for Exam: Screening (asymptomatic). Last mammogram was performed 2 year(s) and 10 month(s) ago. Patient History: Menarche at age 16. First Full-Term at age 33. Late child-bearing (after 30). Postmenopausal. Patient has history of breast feeding. Patient used Estrogen for 1 year. Maternal cousin had breast cancer. Risk Values: Camelia 5 year model risk: 2.1%. NCI Lifetime model risk: 6.9%. Prior Study Comparison: 09/22/2018 Bilateral Screening Mammogram, [facility]. 11/16/2019 Bilateral Screening Mammogram, [facility]. 09/26/2021 Bilateral Screening Mammogram, [facility]. Tissue Density: The breasts are heterogeneously dense, which may obscure small masses. Findings: Analyzed By CAD. There is no suspicious group of microcalcifications or new suspicious mass in either breast. Overall Assessment: Benign, BI-RAD 2 Management: Screening Mammogram of both breasts in 1 year. . Patient should continue monthly self-breast exams. A clinical breast exam by your physician is recommended on an annual basis. This exam should not preclude additional follow-up of suspicious palpable abnormalities. Note on Camelia scores and lifetime risk: 1. A Camelia score greater than 3% is considered moderate risk. If this is the case, consider specialist referral to assess eligibility for a risk reducing agent. 2. If overall lifetime risk for the development of breast cancer is 20% or higher, the patient may qualify for future screening with alternating mammogram and breast MRI. [facility], , 08/10/2024 8:24 AM. Electronically signed and approved by: Blaine Upton M.D. Radiologis
== END | disposition home or self-care (01) ==
LOC: RADMAMWWP 14:43
PROVIDERS: ATTEND Family Medicine
DX: Z12.31 Encounter for screening mammogram for malignant neoplasm of breast (principal); Z78.0 Asymptomatic menopausal state; Z80.3 Family history of malignant neoplasm of breast; R92.333 Mammographic heterogeneous density, bilateral breasts; M81.8 Other osteoporosis without current pathological fracture
CPT/HCPCS: 77063; 77067; 77080

== ENCOUNTER → 2024-08-06 | Outpatient (CLI) | payer MEDICARE ==
--- NOTE | 2024-08-06 16:28 | US ---
EXAMINATION TYPE: US kidneys/renal and bladder DATE OF EXAM: 08/06/2024 COMPARISON: NONE CLINICAL INDICATION: Female, 68 years old with history of N18.30 CKD STAGE 3; CKD 3 TECHNIQUE: Grayscale and color Doppler imaging of the bilateral kidneys and urinary bladder: FINDINGS: EXAM MEASUREMENTS: Right Kidney: 10.3 x 3.8 x 3.5 cm Left Kidney: 8.9 x 4.3 x 4.3 cm Right Kidney: No hydronephrosis or masses seen Left Kidney: No hydronephrosis or masses seen Bladder: wnl Bilateral Jets seen: Yes There is no evidence for hydronephrosis at this point in time. No significant cortical thinning. Krishna ical medullary differentiation is maintained bilaterally. No nephrolithiasis is seen. No masses are identified. The urinary bladder is anechoic. Bilateral ureteral jets are identified. IMPRESSION: No hydronephrosis or nephrolithiasis. [facility], , 08/06/2024 4:26 PM
== END | disposition home or self-care (01) ==
LOC: RADUSWWP 14:45
PROVIDERS: ATTEND Family Medicine
DX: N18.30 Chronic kidney disease, stage 3 unspecified (principal)
CPT/HCPCS: 76770

== ENCOUNTER → 2024-09-25 | Outpatient (CLI) | payer MEDICARE ==
--- NOTE | 2024-09-25 11:07 | US ---
EXAMINATION TYPE: US abdomen complete DATE OF EXAM: 09/25/2024 COMPARISON: NONE CLINICAL INDICATION: Female, 69 years old with history of R74.8 ABNORMAL LEVELS OF OTHER SERUM ENZYME S; abnormal labs. TECHNIQUE: Grayscale and color Doppler imaging of the abdomen was performed. FINDINGS: EXAM MEASUREMENTS: Liver Length: 15.5 cm Gallbladder Wall: .2 cm CBD: .5 cm, color Doppler imaging was utilized to isolate the common bile duct for measurement. Spleen: 8.2 cm Right Kidney: 9.6 x 4.1 x 4.5 cm Left Kidney: 9.6 x 4.6 x 4.2 cm BANQUET SET UP PERSON NOTES: Pancreas: Tail obscured by overlying bowel gas Liver: Increased attenuation , no dilated ducts cysts or masses. Gallbladder: No stones seen Evidence for sonographic Campo's sign: No CBD: wnl Spleen: wnl Right Kidney: No hydronephrosis or masses seen Left Kidney: No hydronephrosis or masses seen Upper IVC: wnl Abd Aorta: wnl The liver is homogenous. The intrahepatic portion of the IVC and proximal abdominal aorta are within normal limits. There is no evidence of cholelithiasis. Common bile duct is unremarkable. The visu alized portions of the pancreas are homogenous. The spleen is unremarkable. Kidneys are symmetric a nd free of hydronephrosis. No renal lesions are seen. IMPRESSION: No evidence for acute process. Hepatic steatosis. [facility], , 09/25/2024 11:05 AM
== END | disposition home or self-care (01) ==
LOC: RADUSWWP 08:25
PROVIDERS: ATTEND Family Medicine
DX: R74.8 Abnormal levels of other serum enzymes (principal); K76.0 Fatty (change of) liver, not elsewhere classified
CPT/HCPCS: 76700